=== PATIENT | male | born 1950 | race Caucasian/White ===

== ENCOUNTER 2020-05-12 08:21 | Emergency (ER) | payer MEDICARE, OTHER ==
[~2020-05-12 08:21] MED LIST: ACCUPRIL 20 MG20 MG PO; GLUCOPHAGE500 MG PO; RANEXA1000 MG PO; TENORMIN 25 MG25 MG PO; VENTOLIN HFA 66.7 GM INH
[2020-05-12 10:16] LABS: HEMOGLOBIN 14.1 gm/dl (14.0-17.5); RED BLOOD COUNT 5.25 M/UL (4.20-5.50); WHITE BLOOD COUNT 6.4 K/UL (4.5-11.0)
[2020-05-12 10:51] LABS: BUN/CREATININE RATIO 17 (0-10)
[2020-05-12] MEDS ORDERED: DOXYCYCLINE HY100 MG PO (15:20)
== END 2020-05-12 15:59 | disposition home or self-care (01) ==
LOC: ER1 08:21 → CDU 13:10 → ER1 15:59
PROVIDERS: Emergency Medicine
DX: J18.9 Pneumonia, unspecified organism (principal); R91.8 Other nonspecific abnormal finding of lung field; R60.0 Localized edema; E87.1 Hypo-osmolality and hyponatremia; E11.9 Type 2 diabetes mellitus without complications; J44.9 Chronic obstructive pulmonary disease, unspecified; I11.9 Hypertensive heart disease without heart failure; F17.210 Nicotine dependence, cigarettes, uncomplicated; Z20.822 Contact with and (suspected) exposure to COVID-19
CPT/HCPCS: 0240U; 36600; 71045; 80053; 82550; 82553; 82803; 83605; 83874; 83880; 84484; 85025; 85379; 87040; 93005; 99285; Q9967

== ENCOUNTER → 2020-07-06 | Outpatient (CLI) | payer MEDICARE ==
[~2020-07-06] MED LIST changes: +DOXYCYCLINE HY100 MG PO; +HYDROCODON-ACE1 EAC4 PO
[2020-07-06 13:30] LABS: HEMOGLOBIN 14.7 gm/dl (14.0-17.5); RED BLOOD COUNT 5.33 M/UL (4.20-5.50); WHITE BLOOD COUNT 6.1 K/UL (4.5-11.0)
[2020-07-06 14:06] LABS: BUN/CREATININE RATIO 19 (0-10)
== END ==
LOC: LAB 12:45
PROVIDERS: Nurse Practitioner
DX: M25.561 Pain in right knee (principal); M79.604 Pain in right leg; R22.41 Localized swelling, mass and lump, right lower limb
CPT/HCPCS: 36415; 80053; 85025; 85379

== ENCOUNTER 2020-07-08 15:51 | Emergency (ER) | payer MEDICARE ==
[~2020-07-08 15:51] MED LIST changes: -HYDROCODON-ACE1 EAC4 PO
[2020-07-08 16:35] LABS: HEMOGLOBIN 15.4 gm/dl (14.0-17.5); RED BLOOD COUNT 5.59 M/UL (4.20-5.50); WHITE BLOOD COUNT 5.8 K/UL (4.5-11.0)
[2020-07-08 16:54] LABS: BUN/CREATININE RATIO 13 (0-10)
[2020-07-08] MEDS ORDERED: HYDROCODON-ACE1 EAC4 PO (18:45)
== END 2020-07-08 19:20 | disposition home or self-care (01) ==
LOC: ER1 15:51
PROVIDERS: Physician Assistant Medical
DX: I72.4 Aneurysm of artery of lower extremity (principal); M17.11 Unilateral primary osteoarthritis, right knee; M71.21 Synovial cyst of popliteal space [Baker], right knee; E11.9 Type 2 diabetes mellitus without complications; I10 Essential (primary) hypertension; E78.5 Hyperlipidemia, unspecified; I25.10 Atherosclerotic heart disease of native coronary artery without angina pectoris; F17.200 Nicotine dependence, unspecified, uncomplicated
CPT/HCPCS: 71045; 73564; 80053; 85025; 85610; 93005; 93926; 93971; 99284; Q9967

== ENCOUNTER → 2020-10-05 | Outpatient (CLI) | payer MEDICARE ==
[~2020-10-05] MED LIST changes: +HYDROCODON-ACE1 EAC4 PO
== END ==
LOC: KOH-I 15:30
DX: M54.2 Cervicalgia (principal); M54.5 Low back pain; M47.816 Spondylosis without myelopathy or radiculopathy, lumbar region; M50.30 Other cervical disc degeneration, unspecified cervical region; M48.02 Spinal stenosis, cervical region
CPT/HCPCS: 72050; 72110

== ENCOUNTER → 2020-12-26 | Outpatient (CLI) | payer MEDICARE, OTHER | LOC: EMI 08:45 | DX: M54.50 Low back pain, unspecified (principal); M47.816 Spondylosis without myelopathy or radiculopathy, lumbar region | CPT/HCPCS: 72148 ==

== ENCOUNTER → 2021-09-29 | Outpatient (CLI) | payer OTHER, MEDICARE | LOC: CT 14:30 | DX: R31.0 Gross hematuria (principal); N20.0 Calculus of kidney | CPT/HCPCS: Q9967 ==